=== PATIENT | female | born 1950 | race Hispanic/Latino ===

== ENCOUNTER 2017-03-03 07:42 | Outpatient (CLI) | payer OTHER | END 2017-03-03 07:43 | disposition home or self-care (01) | LOC: BICMAMMO 07:42 | PROVIDERS: ATTEND Internal Medicine | DX: Z12.31 Encounter for screening mammogram for malignant neoplasm of breast (principal); Z80.3 Family history of malignant neoplasm of breast | CPT/HCPCS: 77067; G0202 ==

== ENCOUNTER 2017-10-14 10:23 | Outpatient (CLI) | payer MEDICARE ==
[2017-10-14 10:51] LABS: Estimated GFR-MDRD - POC Greater than 90
[2017-10-14] MEDS ORDERED: ISOVUE-370 76%-LOCM 1 ML ONE (11:23)
== END 2017-10-14 10:24 | disposition home or self-care (01) ==
LOC: BICCT 10:23
PROVIDERS: ATTEND Internal Medicine
DX: R19.01 Right upper quadrant abdominal swelling, mass and lump (principal); K76.0 Fatty (change of) liver, not elsewhere classified; Z90.49 Acquired absence of other specified parts of digestive tract
CPT/HCPCS: 74177; 82565

== ENCOUNTER 2018-03-29 12:30 | Outpatient (CLI) | payer MEDICARE | END 2018-03-29 12:31 | disposition home or self-care (01) | LOC: BICMAMMO 12:30 | PROVIDERS: ATTEND Internal Medicine | DX: Z12.31 Encounter for screening mammogram for malignant neoplasm of breast (principal); Z80.3 Family history of malignant neoplasm of breast | CPT/HCPCS: 77063; 77067 ==

== ENCOUNTER 2018-08-11 08:29 | Outpatient (CLI) | payer MEDICARE ==
--- NOTE | 2018-08-11 09:47 | CT ---
CT ABDOMEN WITH ORAL AND IV CONTRAST: HISTORY: Right upper quadrant pain, IBS, reflux, nonalcoholic fatty liver FINDINGS: The lung bases are clear. The patient is post cholecystectomy. The liver, pancreas, spleen, adrenal g lands and kidneys are normal. No free air, free fluid or lymphadenopathy seen in the abdomen. The small bowel loops are not abnormally dilated. There are vascular calcifications without aneurysmal di latation of the abdominal aorta. There are degenerative changes in the spine. IMPRESSION: No significant abnormalities are seen.
== END 2018-08-11 08:30 | disposition home or self-care (01) ==
LOC: BICCT 08:29
PROVIDERS: ATTEND Physician Assistant Medical
DX: R10.11 Right upper quadrant pain (principal); K58.1 Irritable bowel syndrome with constipation; K21.9 Gastro-esophageal reflux disease without esophagitis; K76.0 Fatty (change of) liver, not elsewhere classified
CPT/HCPCS: 74160

== ENCOUNTER 2018-08-23 08:43 | Outpatient (CLI) | payer MEDICARE ==
--- NOTE | 2018-08-23 09:04 | RAD ---
Exam: Left RIBS 3 views HISTORY: Pain. COMPARISON: None FINDINGS: No fracture. No cortical irregularity. No periosteal reaction. IMPRESSION: Unremarkable left rib radiograph series.
--- NOTE | 2018-08-23 09:05 | RAD ---
Exam: Right rib radiograph series. Right RIBS 3 views. HISTORY: Pain. COMPARISON: None FINDINGS: No fracture. No cortical irregularity or periosteal action. IMPRESSION: No fracture.
== END 2018-08-23 08:44 | disposition home or self-care (01) ==
LOC: BICRAD 08:43
PROVIDERS: ATTEND Physician Assistant Medical
DX: R07.81 Pleurodynia (principal)

== ENCOUNTER 2018-11-23 09:06 | Outpatient (CLI) | payer MEDICARE | END 2018-11-23 09:07 | disposition home or self-care (01) | LOC: DTY/OP 09:06 | PROVIDERS: ATTEND Internal Medicine | DX: E11.59 Type 2 diabetes mellitus with other circulatory complications (principal); E66.9 Obesity, unspecified | CPT/HCPCS: 97802 ==

== ENCOUNTER 2019-07-25 12:57 | Outpatient (CLI) | payer MEDICARE ==
--- NOTE | 2019-07-25 13:39 | RAD ---
RIGHT HIP TWO VIEWS: 07/25/19 HISTORY: Right hip pain. FINDINGS/IMPRESSION: No fracture, dislocation, or bony destruction identified. No significant arthritic changes identified . POS: [facility]
== END 2019-07-25 12:58 | disposition home or self-care (01) ==
LOC: BICRAD 12:57
PROVIDERS: ATTEND Neurological Surgery
DX: M25.551 Pain in right hip (principal)

== ENCOUNTER 2019-07-31 08:29 | Outpatient (CLI) | payer MEDICARE ==
--- NOTE | 2019-07-31 09:23 | MRI ---
MRI LUMBAR SPINE NONCONTRAST: DATE: 07/31/2019 HISTORY: 68-year-old female with M 54.5 and R 10.31 low back pain and right groin pain COMPARISON: None FINDINGS: 5 lumbar-type vertebrae. Vertebral body height's are maintained. No major bone marrow signal abnormal ity. No high-grade disc space narrowing at any level. No major pathology of perivertebral spaces identified except for edema in the fat posterior to the dorsal lumbar fascia. Conus medullaris termin ates at L1. Cauda equina is arranged in a symmetrical distribution throughout the thecal sac. T12-L1:Essentially normal L1-2:Small central and bilateral paracentral disc protrusion. No central or neural foraminal stenosis . L2-3:Broad-based bilateral lateral and far lateral disc herniations. No central stenosis. Mild bilate ral neural foraminal stenosis. L3-4:Mild bilateral facet DJD with small facet joint effusions. Mild bilateral neural foraminal steno sis. No central stenosis. Mild disc bulge. L4-5:Mild disc bulge. Mild bilateral neural foraminal stenosis. No bony central spinal canal stenosis . Prominent circumferential epidural fat at L5 level which narrows the thecal sac at the L5 level. L5-S1:Prominent anterior and bilateral lateral epidural fat causes thecal sac stenosis. No high-grade central spinal canal stenosis. Mild to moderate bilateral facet DJD. No high-grade neural foraminal stenosis. IMPRESSION: 1) mild lumbar spondylosis. 2) no nerve root impingement identified at any level.
== END 2019-07-31 08:30 | disposition home or self-care (01) ==
LOC: TBSIIMAG 08:29
PROVIDERS: ATTEND Neurological Surgery
DX: M54.5 Low back pain (principal); R10.31 Right lower quadrant pain; M47.816 Spondylosis without myelopathy or radiculopathy, lumbar region
CPT/HCPCS: 72148

== ENCOUNTER 2019-12-28 14:53 | Outpatient (CLI) | payer MEDICARE, OTHER ==
--- NOTE | 2019-12-28 16:01 | MMO ---
Bilateral MAMMO Bilat Screen [facility]. CLINICAL HISTORY: Patient is 69 years old and is seen for screening. The patient has the following family history of breast cancer: sister, malignant (generic). The patient has no personal history of cancer. VIEWS: The views performed were: bilateral craniocaudal with tomosynthesis and bilateral mediolateral oblique with tomosynthesis. FILMS COMPARED: The present examination has been compared to prior imaging studies performed at [facility] on 09/27/2014 and 11/01/2015, and at [facility] on 03/03/2017 and 03/29/2018. This study has been interpreted with the assistance of computer-aided detection. MAMMOGRAM FINDINGS: There are scattered fibroglandular densities. There are stable benign appearing calcifications seen in both breasts. There are no suspicious masses, suspicious calcifications, or new areas of architectural distortion. IMPRESSION: THERE IS NO MAMMOGRAPHIC EVIDENCE OF MALIGNANCY. A ROUTINE FOLLOW-UP MAMMOGRAM IN 1 YEAR IS RECOMMENDED. THE RESULTS OF THIS EXAM WERE SENT TO THE PATIENT. ACR BI-RADS Category 2 - Benign finding MAMMOGRAPHY NOTE: 1. A negative mammogram report should not delay a biopsy if a dominant of clinically suspicious mass is present. 2. Approximately 10% to 15% of breast cancers are not detected by mammography. 3. Adenosis and dense breasts may obscure an underlying neoplasm. Reported by: GOSIA BATISTA MD Electonically Signed: [id number]
--- NOTE | 2019-12-28 17:42 | BD ---
Exam: DEXA Bone Density 12/28/19 INDICATIONS: Postmenopausal screening. FINDINGS: Lumbar Spine: BMD (g/cm2) T-SCORE L1 0.869 -1.1 L2 0.864 -1.5 L3 1.005 -0.7 L4 1.049 -0.1 L1-L4 0.955 -0.8 Total density 12/04/16: 0.897. Femoral Neck: 0.697 -1.4 Total Femur: 1.118 1.4 Total density 12/04/16: 1.043. Impression: 1. Bone mineral density of the lumbar spine within normal range. 2. Bone mineral density of femoral neck indicates osteopenia. Ten year fracture risk: Major osteoporotic fracture: 4.5%. Hip fracture: 0.4%. POS: [facility]
== END 2019-12-28 14:54 | disposition home or self-care (01) ==
LOC: BICMAMMO 14:53
PROVIDERS: ATTEND Nurse Practitioner Adult Health
DX: Z12.31 Encounter for screening mammogram for malignant neoplasm of breast (principal); M85.859 Other specified disorders of bone density and structure, unspecified thigh; Z80.3 Family history of malignant neoplasm of breast
CPT/HCPCS: 77063; 77067; 77080

== ENCOUNTER 2020-07-18 14:45 | Outpatient (CLI) | payer MEDICARE, OTHER | END 2020-07-18 14:46 | disposition home or self-care (01) | LOC: BICMRI 14:45 | PROVIDERS: ATTEND Orthopaedic Surgery | DX: M75.41 Impingement syndrome of right shoulder (principal); M19.011 Primary osteoarthritis, right shoulder; S46.811A Strain of other muscles, fascia and tendons at shoulder and upper arm level, right arm, initial encounter ==

== ENCOUNTER 2021-02-04 08:48 | Outpatient (CLI) | payer MEDICARE, OTHER | END 2021-02-04 08:49 | disposition home or self-care (01) | LOC: BICMAMMO 08:48 | PROVIDERS: ATTEND Internal Medicine | DX: Z12.31 Encounter for screening mammogram for malignant neoplasm of breast (principal); Z80.3 Family history of malignant neoplasm of breast | CPT/HCPCS: 77063; 77067 ==

== ENCOUNTER 2021-03-12 10:21 | Outpatient (CLI) | payer MEDICARE, OTHER ==
[2021-03-12 11:38] LABS: Bilirubin Neg (Negative); Blood, Urine Negative (Negative); Clarity Cloudy (Clear); Glucose, Urine (Dipstick) 250 mg/dL (Negative); Ketone, Urine Negative (Negative); Leukocyte 100 (Negative); Nitrite Negative (Negative); Protein, Urine (Dipstick) 15 mg/dl (Neg-Trace); Urobilinogen Normal mg/dL (Less than 2)
[2021-03-12 11:39] LABS: #Eosinphils 0.1 10x3/uL (0.0-0.5); #Monocytes 0.4 10x3/uL (0.0-1.1); #Neutrophils 3.5 10x3/uL (1.5-8.4); %Basophils 0.3 % (0.0-2.0); %Eosinophils 1.4 % (0.0-6.0); %Lymphocytes 42.8 % (18.0-47.0); %Monocytes 5.3 % (0.0-10.0); %Neutrophils 49.9 % (40.0-75.0); Hemoglobin 13.2 g/dL (12.0-15.5); Mean Corpuscular HGB CONC 31.9 g/dL (32.0-36.0); Mean Corpuscular Hemoglobin 28.9 pg (27.0-33.0); Mean Corpuscular Volume 90.6 fl (81.6-98.3); Mean Platelet Volume 11.4 fl (7.4-10.4); Platelet Count 234 10x3/uL (150-450); RBC Distribution Width 13.2 % (11.5-14.5); Red Blood Cell (RBC) Count 4.57 10x6/uL (3.90-5.03); White Blood Cell (WBC) Count 6.9 10x3/uL (3.5-10.5)
[2021-03-12 11:57] LABS: Anion Gap 13 mmol/L (10-20); BUN (Urea Nitrogen) 13 mg/dL (9.8-20.1); Calc. Creatinine Clearance 0 mL/min (70-130); Calcium 9.4 mg/dL (7.8-10.44); Carbon Dioxide 24 mmol/L (23-31); Chloride 104 mmol/L (98-107); Glucose 249 mg/dL (80-115); Potassium 4.3 mmol/L (3.5-5.1); Sodium 137 mmol/L (136-145)
[2021-03-12 18:52] LABS: SARS-CoV-2 PCR by NAA Not Detected (NotDetected)
== END 2021-03-12 10:22 | disposition home or self-care (01) ==
LOC: LABBT 10:21
PROVIDERS: ATTEND Orthopaedic Surgery Hand Surgery
DX: Z01.818 Encounter for other preprocedural examination (principal); Z20.822 Contact with and (suspected) exposure to COVID-19
CPT/HCPCS: 80048; 81003; 85025; 93005; U0003; U0005; 93010

== ENCOUNTER 2021-03-17 10:29 | Day surgery (SDC) | payer MEDICARE, OTHER ==
[2021-03-11 12:46] VITALS: BMI 39.2
[2021-03-17] MEDS ORDERED: Vancomycin 1.5 GRAM/300 ML BAG 1.5 GM in Premix Bag 1 BAG IVPB SCH (14:45)
[2021-03-17] MEDS ORDERED: Neomycin-Polymyxin 1 ML AMP ONE (15:15)
[2021-03-17] MEDS ORDERED: Betamet Acet/Betamet Na Ph 30 MG/5 ML VIAL ONE (15:15)
[2021-03-17] MEDS ORDERED: Bacitracin Zinc Ointment 30 gm TUBE ONE (15:15)
[2021-03-17] MEDS ORDERED: Bupivacaine PF 0.5% 30 ML VIAL ONE (15:15)
[2021-03-17] MEDS ORDERED: Fentanyl 100 MCG/2 ML VIAL ONE (15:27)
[2021-03-17] MEDS ORDERED: Lidocaine 2% Jelly 5 ML TUBE ONE (15:27)
== END 2021-03-17 18:20 | disposition home or self-care (01) ==
LOC: SDC 10:29
PROVIDERS: ATTEND Orthopaedic Surgery Hand Surgery
PROC: 0LN80ZZ Release Left Hand Tendon, Open Approach (ICD-10-PCS; principal; 2021-03-17)
DX: M65.312 Trigger thumb, left thumb (principal); I10 Essential (primary) hypertension; E78.5 Hyperlipidemia, unspecified; G47.30 Sleep apnea, unspecified; E11.9 Type 2 diabetes mellitus without complications; E66.01 Morbid (severe) obesity due to excess calories; Z68.39 Body mass index [BMI] 39.0-39.9, adult; Z79.82 Long term (current) use of aspirin; Z79.84 Long term (current) use of oral hypoglycemic drugs; Z79.899 Other long term (current) drug therapy; Z88.0 Allergy status to penicillin; Z88.5 Allergy status to narcotic agent; Z88.6 Allergy status to analgesic agent; Z91.010 Allergy to peanuts
CPT/HCPCS: J0702; J3010; J3370; S0020

== ENCOUNTER 2021-05-12 11:28 | Outpatient (CLI) | payer MEDICARE, OTHER ==
[2021-05-12 14:36] LABS: Estimated GFR-MDRD - POC Greater than 90
== END 2021-05-12 11:29 | disposition home or self-care (01) ==
LOC: CT 11:28
PROVIDERS: ATTEND Internal Medicine Gastroenterology
DX: K31.84 Gastroparesis (principal); R10.13 Epigastric pain; R11.2 Nausea with vomiting, unspecified; K57.30 Diverticulosis of large intestine without perforation or abscess without bleeding; R91.8 Other nonspecific abnormal finding of lung field
CPT/HCPCS: 74177; 82565

== ENCOUNTER 2021-05-26 11:15 | Outpatient (CLI) | payer MEDICARE, OTHER ==
[2021-05-26 11:59] LABS: Estimated GFR-MDRD - POC Greater than 90
== END 2021-05-26 11:16 | disposition home or self-care (01) ==
LOC: CT 11:15
PROVIDERS: ATTEND Internal Medicine Gastroenterology
DX: R10.13 Epigastric pain (principal); R11.2 Nausea with vomiting, unspecified; E11.9 Type 2 diabetes mellitus without complications; J98.4 Other disorders of lung
CPT/HCPCS: 71260; 82565

== ENCOUNTER 2021-07-24 10:33 | Outpatient (CLI) | payer MEDICARE ==
[2021-07-24 20:02] LABS: SARS-CoV-2 PCR by NAA Not Detected (NotDetected)
== END 2021-07-24 10:34 | disposition home or self-care (01) ==
LOC: LABBT 10:33
PROVIDERS: ATTEND Student in an Organized Health Care Education/Training Program
DX: Z20.822 Contact with and (suspected) exposure to COVID-19 (principal)
CPT/HCPCS: U0003; U0005

== ENCOUNTER 2021-07-29 08:13 | Outpatient (CLI) | payer MEDICARE, OTHER ==
[2021-07-29 08:37] LABS: Estimated GFR-MDRD - POC Greater than 90
== END 2021-07-29 08:14 | disposition home or self-care (01) ==
LOC: CT 08:13
PROVIDERS: ATTEND Student in an Organized Health Care Education/Training Program
DX: F45.8 Other somatoform disorders (principal); E04.1 Nontoxic single thyroid nodule
CPT/HCPCS: 70491; 74220; 82565

== ENCOUNTER 2021-10-21 09:06 | Outpatient (CLI) | payer MEDICARE, OTHER | END 2021-10-21 09:07 | disposition home or self-care (01) | LOC: BICCT 09:06 | PROVIDERS: ATTEND Nurse Practitioner Family | DX: R93.89 Abnormal findings on diagnostic imaging of other specified body structures (principal) | CPT/HCPCS: 71250 ==

== ENCOUNTER 2022-02-18 10:14 | Outpatient (CLI) | payer MEDICARE, OTHER | END 2022-02-18 10:15 | disposition home or self-care (01) | LOC: BICMAMMO 10:14 | PROVIDERS: ATTEND Nurse Practitioner Family | DX: Z12.31 Encounter for screening mammogram for malignant neoplasm of breast (principal); Z13.820 Encounter for screening for osteoporosis; M85.89 Other specified disorders of bone density and structure, multiple sites; Z78.0 Asymptomatic menopausal state; Z80.3 Family history of malignant neoplasm of breast | CPT/HCPCS: 77063; 77067; 77080 ==

== ENCOUNTER 2022-03-17 18:42 | Emergency (ER) | payer MEDICARE ==
[2022-03-17 19:19] LABS: #Eosinphils 0.1 thou/uL (0.0-0.7); #Lymphocytes 3.7 thou/uL (1.20-3.40); #Monocytes 0.4 thou/uL (0.11-0.59); #Neutrophils 5.8 thou/uL (1.40-6.50); %Basophils 0.2 % (0.0-1.0); %Eosinophils 0.8 % (0.0-10.0); %Monocytes 4.2 % (0.0-10.0); %Neutrophils 57.9 % (42.0-75.0); Hemoglobin 13.9 g/dL (12.0-16.0); Mean Corpuscular HGB CONC 34.4 g/dL (32.0-36.0); Mean Corpuscular Volume 92.8 fl (78.0-98.0); Mean Platelet Volume 8.7 fL (7.4-10.4); Platelet Count 210 10x3/uL (130-400); RBC Distribution Width 12.2 % (11.5-14.5); Red Blood Cell (RBC) Count 4.34 mill/uL (4.20-5.40)
[2022-03-17 19:40] LABS: ALT (SGPT) 8 U/L (8-55); AST (SGOT) 14 U/L (5-34); Alkaline Phosphatase 110 U/L (40-110); Anion Gap 13 mmol/L (10-20); BUN (Urea Nitrogen) 18 mg/dL (9.8-20.1); Bilirubin, Total 0.4 mg/dL (0.2-1.2); Calc. Creatinine Clearance 0 mL/min (70-130); Calcium 9.3 mg/dL (7.8-10.44); Carbon Dioxide 24 mmol/L (23-31); Chloride 103 mmol/L (98-107); Estimated GFR 80; Globulin 2.8 g/dL (2.4-3.5); Glucose 371 mg/dL (80-115); Potassium 4.2 mmol/L (3.5-5.1); Protein, Total 6.8 g/dL (5.8-8.1); Sodium 136 mmol/L (136-145)
[2022-03-17 22:27] LABS: Bacteria/HPF 3+ HPF (None Seen); Bilirubin Negative (Negative); Blood, Urine Negative (Negative); Clarity Clear (Clear); Glucose, Urine (Dipstick) Greater than 1000 mg/dL (Negative); Ketone, Urine Negative (Negative); Leukocyte 500 Leu/uL (Negative); Nitrite Negative (Negative); Protein, Urine (Dipstick) 20 mg/dL (Neg-Trace); Specific Gravity, Urine 1.034 (1.002-1.036); Urobilinogen Normal mg/dL (Less than 2); WBC/HPF Greater than 50 HPF (0-3); pH, Urine 5.5 (5.0-9.0)
[2022-03-17 22:28] LABS: RBC/HPF 0-3 HPF (0-3)
== END 2022-03-18 00:23 | disposition home or self-care (01) ==
LOC: ERS 18:42
DX: H53.8 Other visual disturbances (principal); H43.12 Vitreous hemorrhage, left eye; E11.9 Type 2 diabetes mellitus without complications; I10 Essential (primary) hypertension
CPT/HCPCS: 36415; 70450; 80053; 81003; 81015; 85025; 85652; 86140

== ENCOUNTER 2022-05-05 05:45 | Day surgery (SDC) | payer MEDICARE ==
[2022-05-01 09:59] VITALS: BMI 37.3
[~2022-05-05 05:45] MED LIST: EPINEPHrine 0.3 MG in Ophthalmic Irrigation Solution 500 ML IRR SCH
[2022-05-05] MEDS ORDERED: Phenylephrine 2.5% Ophth Soln 5 ML BOT ONE (06:14)
[2022-05-05] MEDS ORDERED: Cyclopentolate 1% Opth Drop 2 ML BOT ONE (06:14)
[2022-05-05] MEDS ORDERED: fentaNYL PF 100 MCG/2 ML SYRINGE ONE (06:40)
[2022-05-05] MEDS ORDERED: Midazolam HCl 2 mg/2 ml Vial ONE (06:40)
[2022-05-05] MEDS ORDERED: PROPOFOL 20 ML ONE (06:41)
[2022-05-05] MEDS ORDERED: Triamcinolone 40 MG/ML VIAL ONE (07:17)
[2022-05-05] MEDS ORDERED: Lidocaine 4% PF 5 ML AMP ONE (07:17)
[2022-05-05] MEDS ORDERED: Bupivacaine 0.75% 10 ML VIAL ONE (07:17)
== END 2022-05-05 08:07 | disposition home or self-care (01) ==
LOC: SDC 05:45
PROVIDERS: ATTEND Ophthalmology Retina Specialist
PROC: 08T53ZZ Resection of Left Vitreous, Percutaneous Approach (ICD-10-PCS; principal; 2022-05-05)
DX: H43.392 Other vitreous opacities, left eye (principal); Z79.82 Long term (current) use of aspirin; Z79.84 Long term (current) use of oral hypoglycemic drugs; Z79.899 Other long term (current) drug therapy; Z88.0 Allergy status to penicillin; Z88.5 Allergy status to narcotic agent; Z88.6 Allergy status to analgesic agent; Z91.010 Allergy to peanuts
CPT/HCPCS: J0171; J2250; J2704; J3301; J3490

== ENCOUNTER 2022-06-15 11:49 | Day surgery (SDC) | payer MEDICARE ==
[2022-06-11 15:39] VITALS: BMI 38.1
[2022-06-15] MEDS ORDERED: Bupivacaine PF 0.5% 30 ML VIAL ONE (12:27)
[2022-06-15] MEDS ORDERED: Neomycin-Polymyxin 1 ML AMP ONE (12:27)
[2022-06-15] MEDS ORDERED: Bacitracin Zinc Ointment 30 gm TUBE ONE (12:27)
[2022-06-15] MEDS ORDERED: fentaNYL 50 mcg/mL 1 mL Vial ONE (12:41)
[2022-06-15] MEDS ORDERED: CEFAZOLIN 2 GM VIAL ONE (13:17)
[2022-06-15] MEDS ORDERED: Sodium Chloride 0.9% 0 ML ONE (13:17)
[2022-06-15] MEDS ORDERED: Sevoflurane 250 ML INH ANEST BOTTLE ONE (13:26)
[2022-06-15] MEDS ORDERED: Vancomycin 1 GM/200 ML (FROZEN) BAG ONE (13:45)
[2022-06-15] MEDS ORDERED: PROPOFOL 200 MG/20 ML VIAL ONE (14:08)
[2022-06-15] MEDS ORDERED: Ketorolac Tromethamine 30 MG/ML VIAL ONE (14:08)
[2022-06-15] MEDS ORDERED: Dexamethasone 20 MG/5 ML VIAL ONE (14:08)
[2022-06-15] MEDS ORDERED: Ondansetron PF 4 MG/2 ML Vial ONE (14:08)
== END 2022-06-15 16:15 | disposition home or self-care (01) ==
LOC: SDC 11:49
PROVIDERS: ATTEND Orthopaedic Surgery Hand Surgery
PROC: 0RBW0ZZ Excision of Right Finger Phalangeal Joint, Open Approach (ICD-10-PCS; principal; 2022-06-15)
DX: M67.441 Ganglion, right hand (principal); E11.9 Type 2 diabetes mellitus without complications; I10 Essential (primary) hypertension; G47.30 Sleep apnea, unspecified; Z79.82 Long term (current) use of aspirin; Z79.84 Long term (current) use of oral hypoglycemic drugs; Z79.85 Long-term (current) use of injectable non-insulin antidiabetic drugs; Z79.899 Other long term (current) drug therapy; Z88.0 Allergy status to penicillin; Z88.5 Allergy status to narcotic agent; Z88.6 Allergy status to analgesic agent; Z91.010 Allergy to peanuts
CPT/HCPCS: 26160; J3010; J3370; J1100; J1885; J2405; J2704; J3490; S0020

== ENCOUNTER 2022-12-01 17:00 | Outpatient (CLI) | payer MEDICARE | END 2022-12-01 17:01 | disposition home or self-care (01) | LOC: SLEEPLAB 17:00 | PROVIDERS: ATTEND Nurse Practitioner Family | DX: G47.33 Obstructive sleep apnea (adult) (pediatric) (principal); E11.9 Type 2 diabetes mellitus without complications; K21.9 Gastro-esophageal reflux disease without esophagitis; F32.A Depression, unspecified; E66.9 Obesity, unspecified; I10 Essential (primary) hypertension; R53.83 Other fatigue | CPT/HCPCS: 95811 ==

== ENCOUNTER 2024-02-02 14:13 | Outpatient (CLI) | payer MEDICARE | END 2024-02-02 14:14 | disposition home or self-care (01) | LOC: BICMAMMO 14:13 | PROVIDERS: ATTEND Family Medicine | DX: Z12.31 Encounter for screening mammogram for malignant neoplasm of breast (principal); Z80.3 Family history of malignant neoplasm of breast | CPT/HCPCS: 77063; 77067 ==